=== PATIENT | male | born 1985 ===

== ENCOUNTER 2017-01-10 17:26 | Emergency (ER) | payer BC ==
[2017-01-10 17:42] LABS: BASOPHILS 0.6 % (0.0-2.0); EOSINOPHILS 6.2 % (0.0-6.0); EOSINOPHILS# 0.5 X 10^3uL (0.0-0.4); HEMATOCRIT 41.9 % (42.0-54.0); HEMOGLOBIN 13.9 g/dL (14.0-18.0); LYMPHOCYTES 39.7 % (20.0-40.0); MEAN CELL VOLUME 79.6 fL (80.0-100.0); MEAN CORPUS. HGB CONCENTRATION 33.1 g/dL (32.0-36.0); MEAN CORPUSCULAR HEMOGLOBIN 26.4 pg (29.0-35.0); MEAN PLATELET VOLUME 7.7 fL (7.4-10.4); MONOCYTES 9.6 % (2.0-10.0); MONOCYTES# 0.7 X 10^3uL (0.2-1.0); NEUTROPHILS 43.9 % (54.0-75.0); NEUTROPHILS# 3.5 X 10^3uL (2.6-6.7); PLATELET COUNT 335 X 10^3uL (130-440); RED BLOOD COUNT 5.27 X 10^6uL (4.20-6.10); WHITE BLOOD COUNT 7.7 X 10^3uL (3.9-10.7)
[2017-01-10 17:53] LABS: BLOOD UREA NITROGEN 19 mg/dL (9-20); CALCIUM 9.2 mg/dL (8.4-10.2); CHLORIDE 107 mmol/L (98-107); EST GLOMERULAR FILTRATION RATE > 60 mL/min; GLUCOSE 125 mg/dL (70-100); POTASSIUM 3.6 mmol/L (3.5-5.1); SODIUM 142 mmol/L (137-145)
[2017-01-10 18:06] LABS: TROPONIN I < 0.012 ng/mL (0.00-0.034)
--- NOTE | 2017-01-10 21:06 | ER NURSING DOCUMENTATION ---
Nurse's Notes [facility] Name:Chauncey Rojas Age:31 yrs Sex:Male :1985 Arrival Date:01/10/2017 Time:17:26 Bed5 Private MD: Diagnosis:Vasovagal Syncope Presentation: 01/10 17:28 Presenting complaint: Patient states: Pt arrive from [facility] yesterday and came to [facility] today. Pt had one ciders with dinner along with a marijuana gummy, a chocolate edible and a joint. Pt had syncopal episode while at home. He felt "rotten" while sitting at the dinner table and tried to get up to go to the bathroom and passed out. Pt did not strike his head. Transition of care: Home. 17:28 Method Of Arrival: EMS: 400 17:28 Acuity: JERMAN 2 Triage Assessment: 17:29 General: Appears in no apparent distress, Behavior is cooperative. Pain: Denies pain. rh EENT: Oral mucosa is dry. Neuro: Level of Consciousness is awake, alert, obeys commands, Reports a syncopal episode. Cardiovascular: Capillary refill < 3 seconds Chest pain is denied. Respiratory: Airway is patent Respiratory effort is even, unlabored, Respiratory pattern is regular, symmetrical, Denies shortness of breath. GI: Denies nausea. : No deficits noted. Derm: Skin is intact, is healthy with good turgor, Skin is pink, warm & dry. normal. Musculoskeletal: Circulation, motion, and sensation intact Range of motion intact in all extremities. Historical: - Allergies: No known drug Allergies; - Home Meds: 1. None - PMHx: None; - PSHx: Appendectomy; - Tetanus: < 10 years. - Ebola Screening: : Patient negative for fever greater than or equal to 101.5 degrees Fahrenheit, and additional compatible Ebola Virus Disease symptoms. - Immunization history: Flu Vaccine None. - Social history: Smoking status: Patient states was never smoker of tobacco. Screenin:31 Infectious Disease Risk None. Abuse screen: Denies threats or abuse. Denies injuries rh from another. Nutritional screening: No deficits noted. Assessment: 17:31 See Triage Assessment done by same RN. 18:12 Reassessment: pt states improvement in sx, will do ortho vitals once second liter is rh completed. . 19:17 Reassessment: Pt was assessed for ortho static vitals. Pt was standing for about 5 rh minutes, he caesar'd down and got pale/diaphoretic and dizzy. . Vital Signs: 17:30 BP 110 / 70; Pulse 76; Resp 15; Temp 98.3(O); Pulse Ox 97% ; Weight 74.84 kg; Height 5 rh ft. 8 in. (172.72 cm); Pain 0/10; 18:13 Pulse 82 MON; Pulse Ox 95% ; rh 18:15 BP 117 / 72 (auto/); rh 18:28 Pulse 82 MON; Pulse Ox 96% ; rh 18:30 BP 113 / 58 (auto/); rh 18:43 Pulse 79 MON; Pulse Ox 96% ; rh 18:45 BP 116 / 63 Supine (auto/); rh 18:58 Pulse 85 MON; Pulse Ox 94% ; rh 19:00 BP 120 / 62 Sitting (auto/); rh 19:03 Pulse 85 MON; Pulse Ox 96% ; rh 19:08 Pulse 81 MON; Pulse Ox 99% ; rh 19:08 BP 142 / 81 Standing (auto/); rh 19:12 BP 113 / 52 (auto/); rh 19:12 Pulse 30; rh 20:28 Pulse 83 MON; Pulse Ox 99% ; rh 20:30 BP 139 / 70 (auto/); rh 20:43 Pulse 84 MON; Pulse Ox 96% ; rh 20:45 BP 122 / 102 (auto/); rh 17:30 Body Mass Index 25.09 (74.84 kg, 172.72 cm) rh ED Course: 17:25 EKG done. (by ED staff). Reviewed by Kenyatta Clemens. arc 17:27 Patient arrived in ED. ama 17:27 Kenyatta Clemens is Primary Nurse. rh 17:29 Triage completed. rh 17:31 Maintain field IV. Site clean & dry. Gauge & site: 18 G L AC. rh 17:31 Notified ED Physician of patient's arrival and chief complaint. Dr. Coronado notified. rh 17:31 Valuables Remains with patient Patient has correct armband on for positive rh identification. Bed in low position. Call light in reach. Side rails up X 1. engine monitor on. Pulse ox on. NIBP on. 17:58 Franki Coronado MD is Attending Physician. tl1 Administered Medications: 17:34 Drug: NS 0.9% 1000 ml; Route: IV; Rate: bolus; Site: left antecubital; rh 18:12 Follow up: IV Status: Completed infusion; IV Intake: 1000ml rh 17:45 CANCELLED (Other Intervention Used): Tetanus-Diphtheria Toxoid Adult 0.5 ml IM once; rh Use Tetanus Immune Globulin (TIG) for patients whose immunization is incomp 18:12 Drug: NS 0.9% 1000 ml; Route: IV; Rate: bolus; Site: left antecubital; rh 19:15 Follow up: IV Status: Completed infusion; IV Intake: 1000ml rh Point of Care Testing: Blood Glucose: 17:30 Blood Glucose: 92 mg/dL; rh Ranges: Intake: 18:12 IV: 1000ml; Total: 1000ml. rh 19:15 IV: 1000ml; Total: 2000ml. rh Outcome: 20:23 Discharge ordered by . tl1 21:04 Discharged to home ambulatory, with significant other. rh 21:04 Condition: improved 21:04 Discharge Assessment: Patient awake, alert and oriented x 3. No cognitive and/or functional deficits noted. Patient verbalized understanding of disposition instructions. 21:04 Discharge instructions given to patient, significant other, Instructed on discharge instructions, follow up and referral plans. Demonstrated understanding of instructions. 21:04 IV D/Erik 21:05 Patient left the ED. rh Signatures: Emanuel Flaherty, Reg Reg Franki Anderson MD MD tl1 Buffy Kan, Reg Reg Kenyatta Gruber
--- NOTE | 2017-01-10 21:06 | ER PHYSICIAN DOCUMENTATION ---
Physician Documentation [facility] Name:Chauncey Rojas Age:31 yrs Sex:Male :1985 Arrival Date:01/10/2017 Time:17:26 Bed5 Private MD: Franki Arambula Disposition: 01/10 23:54 Chart complete. tl1 Disposition: 01/10/17 20:23 Discharged to Home/Self Care. Impression: Vasovagal Syncope. - Condition is Good. - Discharge Instructions: SYNCOPE, Vasovagal. - Medical Reconciliation form form. - Follow up: Private Physician; When: 7 - 10 days; Reason: Recheck today's complaints, Continuance of care. - Problem is new. - Symptoms have improved. HPI: 17:58 This 31 yrs old Unknown Male presents to ER via EMS with complaints of Syncope. tl1 23:30 The patient has experienced syncope. He is out here with his SO for a wedding. this tl1 afternoon he had some marijuana (edibles and smoked) and was at the [employer] for dinner where he had a drink. While sitting, he suddenly became lightheaded and diaphoretic, somewhat nauseated. He stood up to go to the bathroom to get a cool wet cloth,and had a symcopal episode with LOC for about 3 seconds. He did not bite his tongue or have incontinence.. He reports that he is frequently lightheaded. 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 23:46 Medics were summoned. When they arrived, and he stood up his pulse dropped into the low tl1 30's and he became lightheaded and diaphoretic again. This resolved when he lay down on the [place].. Historical: - Allergies: No known drug Allergies; - Home Meds: 1. None - PMHx: None; - PSHx: Appendectomy; - Tetanus: < 10 years. - Ebola Screening: : Patient negative for fever greater than or equal to 101.5 degrees Fahrenheit, and additional compatible Ebola Virus Disease symptoms. - Immunization history: Flu Vaccine None. - Social history: Smoking status: Patient states was never smoker of tobacco. ROS: 17:40 Cardiovascular: Negative for chest pain, palpitations. tl1 17:40 Respiratory: Negative for cough, hemoptysis, pleurisy, shortness of breath, sputum production, wheezing. 17:40 Abdomen/GI: Negative for abdominal pain, nausea, vomiting, diarrhea, hematemesis, black/tarry stool, rectal bleeding. 17:40 : Negative for urinary symptoms. 17:40 Neuro: Positive for dizziness, syncope, Negative for altered mental status, headache, seizure activity, speech changes, visual changes, weakness. Exam: 17:40 Constitutional: This is a well developed, well nourished patient who is awake, alert, tl1 and in no acute distress. Head/Face: Normocephalic, atraumatic. Eyes: Pupils equal round and reactive to light, extra-ocular motions intact. Lids and lashes normal. Conjunctiva and sclera are non-icteric and not injected. Cornea within normal limits. Periorbital areas with no swelling, redness, or edema. ENT: Nares patent. No nasal discharge, no septal abnormalities noted. Tympanic membranes are normal and external auditory canals are clear. Oropharynx with no redness, swelling, or masses, exudates, or evidence of obstruction, uvula midline. Mucous membranes moist. 17:40 Neck: Trachea midline, no thyromegaly or masses palpated, and no cervical tl1 lymphadenopathy. Supple, full range of motion without nuchal rigidity, or vertebral point tenderness. No Meningismus. 17:40 Cardiovascular: Rate: normal, Rhythm: regular, Heart sounds: normal, Edema: is not appreciated, JVD: is not appreciated. 17:40 Respiratory: the patient does not display signs of respiratory distress, Respirations: normal, Breath sounds: are normal. 17:40 Musculoskeletal/extremity: Exam is negative for acute changes. 17:40 Skin: Exam negative for acute changes. 17:40 Neuro: Orientation: is normal, Mentation: is normal, Memory: is normal, Cranial nerves: grossly normal, Motor: strength is 5/5 in the right hand, left hand, right foot and left foot, Gait: is steady, at a normal pace, without difficulty, appropriate for age, Deep tendon reflexes are 2+ (normal) in the right brachioradialis, right patellar, left brachioradialis and left patellar. Vital Signs: 17:30 BP 110 / 70; Pulse 76; Resp 15; Temp 98.3(O); Pulse Ox 97% ; Weight 74.84 kg; Height 5 rh ft. 8 in. (172.72 cm); Pain 0/10; 18:13 Pulse 82 MON; Pulse Ox 95% ; rh 18:15 BP 117 / 72 (auto/); rh 18:28 Pulse 82 MON; Pulse Ox 96% ; rh 18:30 BP 113 / 58 (auto/); rh 18:43 Pulse 79 MON; Pulse Ox 96% ; rh 18:45 BP 116 / 63 Supine (auto/); rh 18:58 Pulse 85 MON; Pulse Ox 94% ; rh 19:00 BP 120 / 62 Sitting (auto/); rh 19:03 Pulse 85 MON; Pulse Ox 96% ; rh 19:08 Pulse 81 MON; Pulse Ox 99% ; rh 19:08 BP 142 / 81 Standing (auto/); rh 19:12 BP 113 / 52 (auto/); rh 19:12 Pulse 30; rh 20:28 Pulse 83 MON; Pulse Ox 99% ; rh 20:30 BP 139 / 70 (auto/); rh 20:43 Pulse 84 MON; Pulse Ox 96% ; rh 20:45 BP 122 / 102 (auto/); rh 17:30 Body Mass Index 25.09 (74.84 kg, 172.72 cm) rh MDM: 17:56 Patient medically screened. tl1 19:00 Differential Diagnosis: cardiac arrhythmia, drug effect, emotional response, GI bleed, tl1 idiopathic syncope, vasovagal episode. Data reviewed: vital signs, nurses notes, lab test result(s), cardiac enzymes, CBC, electrolytes, hepatic panel, EKG, radiologic studies, plain films, and as a result, I will discharge patient. Data interpreted: groundwater monitoring technician: Pulse oximetry:. Test interpretation: by ED physician or midlevel provider: plain radiologic studies, ECG. Counseling: I had a detailed discussion with the patient and/or guardian regarding: the historical points, exam findings, and any diagnostic results supporting the discharge/admit diagnosis, lab results, radiology results, the need for outpatient follow up, to return to the emergency department if symptoms worsen or persist or if there are any questions or concerns that arise at home. Response to treatment: the patient's symptoms have resolved after treatment, and as a result, I will discharge patient. Physician consultation: Saúl Kilgore was called at 20:00, was contacted at 20:05, regarding consult, patient's condition, After discussing his presentation with Dr Kilgore, I was confident these episodes he has been having today are most likely vasovagal, possibly exacerbated by marijuana and alcohol use. He is probably somewhat dehydrated as well, at this altitude. I think it is safe for him to be d/c'd. I encouraged him to drink extra fluids while here and to be sure to f/u with his PCP AND / OR a panama hat blocker on returning home.. 19:00 ECG:. tl1 19:08 ECG:. tl1 01/10 17:47 Order name: CBC AUTO DIF, MDIF/RMOR IF IND; Complete Time: 19:08 EDGA 01/10 19:07 Interpretation: WHITE BLOOD COUNT 7.7; HEMOGLOBIN 13.9; HEMATOCRIT 41.9; PLATELET COUNT tl1 335. 01/10 18:06 Order name: BASIC METABOLIC PANEL; Complete Time: 19:08 EDMS 01/10 19:07 Interpretation: Normal: SODIUM 142; POTASSIUM 3.6; CHLORIDE 107; CARBON DIOXIDE 25; tl1 GLUCOSE 125; BLOOD UREA NITROGEN 19; CREATININE 1.2; EST GLOMERULAR FILTRATION RATE > 60; CALCIUM 9.2. 01/10 18:06 Order name: TROPONIN I; Complete Time: 19:08 EDGA 01/10 19:07 Interpretation: Normal: TROPONIN I < 0.012. [facility] 01/10 17:27 Order name: Call For Old Ekg; Complete Time: : 01/10 17:27 Order name: 12-lead EKG; Complete Time: : 01/10 23:57 Interpretation: SEE NOTE. [facility] 01/10 17:27 Order name: Continuous Cardiac Monitoring; Complete Time: : 01/10 17:27 Order name: I & O; Complete Time: : 01/10 17:27 Order name: NPO; Complete Time: : 01/10 17:27 Order name: Oxygen; Complete Time: : 01/10 17: Order name: Pulse Ox Continuous; Complete Time: : EC: Rate is 76 beats/min. Rhythm is regular. QRS [place] is Normal. QRS is positive in leads tl1 I, II, III, aVL, aVF, V3, V4, V5, V6. [place] interval is normal at 186 msec. QRS interval is normal at 80 msec. QT interval is normal at 369 msec. Q waves are Present in leads III, V5, V6. T waves are Normal. No ST changes noted. Clinical impression: Normal ECG and WITH EARLY REPOLARIZATION. Interpreted by me. Reviewed by me. 17:25 Rate is 76 beats/min. Rhythm is regular. QRS [place] is Normal. [place] interval is normal at tl1 186 msec. QRS interval is normal at 80 msec. QT interval is normal at 369 msec. Q waves are Present in leads II, III, aVF, V5, V6. T waves are Normal. No ST changes noted. Clinical impression: NSR with early repolarization. Interpreted by me. Reviewed by me. Dispensed Medications: 17:34 Drug: NS 0.9% 1000 ml; Route: IV; Rate: bolus; Site: left antecubital; rh 18:12 Follow up: IV Status: Completed infusion; IV Intake: 1000ml rh 17:45 CANCELLED (Other Intervention Used): Tetanus-Diphtheria Toxoid Adult 0.5 ml IM once; rh Use Tetanus Immune Globulin (TIG) for patients whose immunization is incomp 18:12 Drug: NS 0.9% 1000 ml; Route: IV; Rate: bolus; Site: left antecubital; rh 19:15 Follow up: IV Status: Completed infusion; IV Intake: 1000ml rh Point of Care Testing: Blood Glucose: 17:30 Blood Glucose: 92 mg/dL; rh Ranges: Critical Glucose Levels:Adult <50 mg/dl or >400 mg/dl <40 mg/dl or >180 mg/dl Signatures: Franki Coronado MD MD tl1 Kenyatta Clemens
== END 2017-01-10 21:06 | disposition home or self-care (01) ==
LOC: ER 17:26
DX: R55 Syncope and collapse (principal); R42 Dizziness and giddiness; E86.0 Dehydration; R00.1 Bradycardia, unspecified; F12.10 Cannabis abuse, uncomplicated
CPT/HCPCS: 80048; 84484; 85025; 93005; 96360; 96361; 99284; A0425; A0427